=== PATIENT | female | born 1955 | race Caucasian/White ===

== ENCOUNTER 2017-03-25 01:17 | Emergency (ER) | payer MEDICAID ==
[~2017-03-25] VITALS: Ht 162.6 cm; Wt 90.7 kg
--- NOTE | 2017-03-25 01:26 | NUR ---
BBRA FROM HOME; "I THINK IM HAVING AN ANXIETY ATTACK" TOOK 1MG XANAX 45 MIN MANAGER POWER. PT AOX3 RR EVEN AND UNLABORED. NO SOB NOTED. NAD NOTED. NO NVD AT THIS TIME. PT PLACED ON MONITOR . DR. MANCILLA AT BEDSIDE FOR EVAL.
[2017-03-25] MEDS ORDERED: LORAZEPAM INJ 2 MG/ML VIAL IM ONE (01:30)
[2017-03-25] MEDS ORDERED: LORAZEPAM INJ 2 MG/ML VIAL ONE (01:39)
--- NOTE | 2017-03-25 02:08 | NUR ---
DAUGHTER AT BEDSIDE.
--- NOTE | 2017-03-25 02:34 | NUR ---
PT STATES SHE FEELS BETTER AT THIS TIME.
[2017-03-25 02:45] VITALS: BP 148/86
--- NOTE | 2017-03-25 02:45 | NUR ---
Patient discharged to home in stable condition. Written and verbal after care instructions given. Patient verbalizes understanding of instruction. ambulatory with a steady gait. instructed not to drive. pt verbalize understanding. pt accompanied by daughter.
== END 2017-03-25 02:50 | disposition home or self-care (01) ==
LOC: ER 01:22
DX: F41.9 Anxiety disorder, unspecified (principal); I10 Essential (primary) hypertension
CPT/HCPCS: 96372; 99284; A4606; J2060; Z7610